=== PATIENT | female | born 1990 | race African-American/Black ===

== ENCOUNTER 2023-05-08 22:42 | Emergency (ER) | payer OTHER ==
[~2023-05-08] VITALS: Ht 175.3 cm; Wt 69.2 kg
[2023-05-08 23:15] VITALS: O2SAT 100
[2023-05-09] MEDS ORDERED: P20 MT (05:25)
[2023-05-09] MEDS ORDERED: ACET-2708 MT (05:25)
[2023-05-09] MEDS ORDERED: AMOX-494 MT (05:25)
[2023-05-09 05:28] VITALS: BP 107/60; PULSE 83; RESP 17; TEMP 98.6
== END 2023-05-09 05:35 | disposition home or self-care (01) ==
LOC: ER 22:42
DX: J02.9 Acute pharyngitis, unspecified (principal); J45.909 Unspecified asthma, uncomplicated
CPT/HCPCS: 99283